=== PATIENT | female | born 1985 | race Caucasian/White ===

== ENCOUNTER 2019-07-30 01:49 | Emergency (ER) | payer BC ==
[~2019-07-30] VITALS: Ht 165.1 cm; Wt 66.2 kg
[2019-07-30 01:51] VITALS: Ht 165.1 cm; Wt 66.2 kg
[2019-07-30 02:57] LABS: BASOPHIL % 0.3 % (0-2); PLATELET COUNT 243 x10^3mcL (130-400); RED CELL DISTRIBUTION WIDTH 13.4 % (11.5-14.5)
[2019-07-30 02:59] LABS: CALCIUM 8.6 mg/dL (8.5-10.1); CARBON DIOXIDE 22.3 mmol/L (21-32); CHLORIDE SERUM 104 mmol/L (98-107); CREATININE SERUM 0.7 mg/dL (0.6-1.0); GFR1 > 60 mL/min; GLUCOSE SERUM 110 mg/dL (74-106); SODIUM SERUM 141 mmol/L (136-145)
[2019-07-30 03:03] LABS: ALKALINE PHOSPHATASE 62 U/L (46-116); ALT/SGPT 78 U/L (14-59); AST/SGOT 28 U/L (15-37); BILIRUBIN TOTAL 0.85 mg/dL (0.20-1.00); LIPASE 78 IU/L (73-393)
[2019-07-30 03:44] VITALS: BP 121/72
== END 2019-07-30 04:58 | disposition left against medical advice (07) ==
LOC: ED 01:49
PROVIDERS: Emergency Medicine
DX: K35.80 Unspecified acute appendicitis (principal)
CPT/HCPCS: J2270; J2405; J7030